=== PATIENT | male | born 1970 ===

== ENCOUNTER 2024-08-29 14:03 | Emergency (ER) | payer SELFPAY ==
[~2024-08-29] VITALS: Ht 198.1 cm; Wt 152.4 kg
[2024-08-29] MEDS ORDERED: NiCARdipine HCL 50 MG in NS 250 ML IV SCH (14:20)
[2024-08-29 14:35] LABS: BASOPHILS ABSOLUTE AUTO 0.03 K/mm3 (0.00-0.23); BASOPHILS PERCENT AUTO 0 % (0-2); EOSINOPHILS PERCENT AUTO 1 % (0-6); Hematocrit 44.4 % (37.0-53.0); Hemoglobin 15.6 g/dL (13.5-17.5); IMMATURE GRAN ABSOLUTE AUTO 0.05 K/mm3 (0.00-0.10); IMMATURE GRAN PERCENT AUTO 1 % (0-1); LYMPHOCYTES ABSOLUTE AUTO 1.12 K/mm3 (0.84-5.20); LYMPHOCYTES PERCENT AUTO 15 % (21-46); MONOCYTES ABSOLUTE AUTO 0.94 K/mm3 (0.16-1.47); MONOCYTES PERCENT AUTO 12 % (4-13); Mean Corpuscular HGB 30.8 pg (26.0-34.0); Mean Corpuscular HGB Conc 35.1 g/dL (31.5-36.5); Mean Corpuscular Volume 88 fL (80-100); Mean Platelet Volume 11.5 fL (9.1-12.4); NEUTROPHILS ABSOLUTE AUTO 5.36 K/mm3 (1.96-9.15); NEUTROPHILS PERCENT AUTO 71 % (41-73); Platelet Count 147 K/mm3 (150-400); RDW Coefficient Variation 12.4 % (11.7-14.2); RDW Standard Deviation 39.4 fL (35.1-46.3); Red Blood Cell Count 5.07 M/mm3 (4.30-5.90)
[2024-08-29] MEDS ORDERED: Tenecteplase 50 MG / Kit IV ONE ×2 (14:35→21:25)
[2024-08-29 14:59] LABS: Albumin, Blood 3.2 g/dL (3.4-5.0); Albumin/Globulin Ratio 0.9 (0.8-1.8); Bilirubin, Total 0.5 mg/dL (0.1-1.0); Bun/Creatinine Ratio 16.8 (12.0-20.0); Calcium, Blood 8.7 mg/dL (8.5-10.1); Creatinine, Blood 1.01 mg/dL (0.60-1.20); Globulin, Blood 3.5 g/dL (2.2-4.0); Potassium, Blood 3.7 mmol/L (3.5-5.5); Total Protein, Blood 6.7 g/dL (6.4-8.2)
[2024-08-29] MEDS ORDERED: ARIMIDEX1 M2 PO (15:00)
[2024-08-29] MEDS ORDERED: Aspir 8181 MG PO (15:00)
[2024-08-29] MEDS ORDERED: MOUNJARO2.5 MG/0.5 (15:00)
== END 2024-08-29 16:56 | disposition short-term general hospital (02) ==
LOC: ER 14:03
PROVIDERS: Student in an Organized Health Care Education/Training Program
DX: I63.9 Cerebral infarction, unspecified (principal); R47.01 Aphasia; G83.21 Monoplegia of upper limb affecting right dominant side; R29.810 Facial weakness; R29.706 NIHSS score 6; I48.91 Unspecified atrial fibrillation
CPT/HCPCS: 70450; 70496; 70498; 71045; 80053; 82947; 85025; 93005; 93010; 96374-59; 99285-25; J3101; J7050; Q9967